=== PATIENT | female | born 2000 | race Caucasian/White ===

== ENCOUNTER 2024-04-03 13:21 | Outpatient (CLI) | payer OTHER, SELFPAY | END 2024-04-03 13:22 | disposition home or self-care (01) | PROVIDERS: PCP Nurse Practitioner; Visit Provider Nurse Practitioner | DX: M25.562 Pain in left knee (principal) | CPT/HCPCS: 73564 ==

== ENCOUNTER 2024-08-29 04:57 | Emergency (ER) | payer OTHER, SELFPAY ==
--- NOTE | ~2024-08-29 | XR_ITS ---
Clinical Indication: Chest pain PA and lateral views of the chest: Comparison: None Findings: The lungs are clear, without evidence of focal consolidation or pleural effusion. Cardiome diastinal silhouette is within normal limits. Bones and soft tissues are unremarkable. Impression: Normal chest. Reviewed, dictated and finalized at location . G ADULT LIBRARIAN Impression: Normal chest.
--- OUTSIDE RECORDS SUMMARY | 2024-08-29 05:00 | XMS_ITS | Continuity of Care Document ---
Author Organization [address] [facility] Address [address] [place] [address] Phone Care Team Providers Care Food Cashier Name Role Phone Suhail Delacruz MD Unavailable Unavailable Allergies, Adverse Reactions, Alerts Substance Reaction Status Criticality No Known allergies Procedures Procedure Date Office/outpatient visit new X-ray exam of wrist Advance Directives Directive Yes / No Effective Date File Name No Information Encounters Encounter Description Practice Location Reason(s) For Visit Diagnoses Date Provider Providers Copied on Encounter Office/outpati ent visit new [address] [facility], [id number], [place], [address], [place] tel:[phone] [facility] [address] Rt. wrist pain (chief complaint) Wrist pain Jayme Jang. [address] [facility] [address], [place], [place], [id number], [place]. tel:[phone] Referring Provider: Monica Victoria, [address] [facility] [address], [place], [address]. tel:[phone] Family History Family Member Type Diagnosis Age At Onset No Information Payers Payer name Insurance type Covered alliance party ID Iraida romerococo(s) [facility] CI [id number] Social History Type Description Quantity Date Captured Comments Alcohol Use Details Unknown Caffeine Use Details Unknown Tobacco Use Status No Information Smoking Status Never smoker Non-Smoking Tobacco Use Details : No Details Available : No Details Available Sex Female Chief Complaint And Reason For Visit From encounter dated '05/12/2012 09:00'. Rt. wrist pain (chief complaint) Reason For Referral Reason For Referral No Information History Of Present Illness Encounter Date Complaint History Of Prese nt Illness No Information Functional Status Date Functional Assessmen t No Information Instructions Date Instruction Additional Infor mation No Information Assessments Type Assessment Date No Information Patient Care Teams Name Effective Dates (start - stop) Status Members No Information
--- OUTSIDE RECORDS SUMMARY | 2024-08-29 05:00 | XMS_ITS | Continuity of Care Document ---
Author Organization [facility] Address [address] [place] [address] Care Team Providers Care Ophthalmic Tech Name Role Phone Jefferson Mccoy MD Unavailable Unavailable Allergies, Adverse Reactions, Alerts Substance Reaction Status Criticality No Known Allergies Active No Inform ation Medications Medication Instructions Dosage Effective Dates (start - stop) Status Comments amitriptyline 10 mg tablet take 1 tablet by oral route every day 10 MG - Active cyclobenzaprine ER 15 mg capsule,extended release 24 hr take 1 capsule by oral route every day as needed 15 MG - Active Procedures Procedure Date Echo Offic Cons New/estab Advanced Directives Documented 23 Ecg-routine 12 Lead; W/intrpt 3 Advance Directives Directive Yes / No Effective Date File Name No Information Encounters Encounter Description Practice Location Reason(s) For Visit Diagnoses Date Provider Providers Copied on Encounter [facility], [address] [place] [address], [address], [facility] Office [address] No Information 4 Nadine Paulino. [address] [place] [address], [address], [address], [place]. tel:[phone] [facility], [address] [place] [address], [address], [place] [facility] No Information 3 Tere Olmstead. [address] [place] [address], [place] [address], [place] [address], [place], [place], [id number], [place]. tel:[phone] Referring Provider: Jefferson Mccoy, [address] [place] [address], [place] [address], [place], [address]. tel:[phone] Offic Cons New/estab [facility], [address], [place], [address], [place] Office Cardiac Eval- Ref by Lore (chief complaint) Cardiovasc rich Review (chief complaint) Vasovagal syncope 3 Nadine Paulino. [address] [facility], [address], [place], [address], . tel:[phone] Referring Provider: Belkis Haley, [facility] [place], [address]. tel:[phone] Family History Family Member Type Diagnosis Age At Onset Problem Family History o f Coronary artery disease, premature Payers Payer name Insurance type Covered alliance party ID Iraida mares(s) [employer] CI [id number] Social History Type Description Quantity Date Captured Comments Alcohol Use Details Unknown Caffeine Use Details Unknown Tobacco Use Status No Information Smoking Status No Information Sex Female Chief Complaint And Reason For Visit No Information Reason For Referral Reason For Referral No Information History Of Present Illness Encounter Date Complaint History Of Duarte duke Illness Cardiac Eval- Ref by Lore Areli duke was sent here for evaluation of syncope. She has seen Neurology. Her symptoms usually occur when she is in the shower. She feels dizzy and somewhat lightheaded but gets tingling in her hands and then feels like she is going to pass out. She has actually lost consciousness a few times but has not hurt herself as she does help herself to the ground. She usually does not get this outside of being in the shower. Has had some dizziness in the past at work on 1 occasion but no syncope. No nausea associated. No chest pain or palpitations. Denies PND orthopnea or edema. Cardiovascular Review She has moura d no chest discomfort suggestive of ischemia. The patient denies orthopnea, PND, OBRIEN, or edema. Ms. Vila has not had palpitations, syncope or near syncope. Functional Status Date Functional Assessmen t No Information Instructions Date Instruction Additional Infor mation No Information Assessments Type Assessment Date No Information Patient Care Teams Name Effective Dates (start - stop) Status Members No Information
[2024-08-29 05:03] VITALS: BP 130/85; PULSE 107; RESP 16; TEMP 36.6; O2SAT 100
[2024-08-29 05:05] VITALS: BP 130/85; PULSE 101; RESP 20; O2SAT 100
--- NOTE | 2024-08-29 05:07 | ECG_ITS ---
Test Date: 2024-08-29 05:16:05 Measurements Intervals [place] Rate: 89 P: 47 WV: 185 QRS: 20 QRSD: 88 T: 60 QT: 345 QTc: 420 Interpretive Statements SINUS RHYTHM POSSIBLE RIGHT VENTRICULAR CONDUCTION DELAY BASELINE ARTIFACT- I, II, III, AVR, AVL, AVF, V1 BORDERLINE ECG No previous ECG available for comparison Electronically Signed On 08-29-2024 08:19:10 CHANNELING MACHINE RUNNER by Robert De Los Santos D.O.
[2024-08-29 05:15] LABS: Basophils Absolute Auto 0.1 K/mm3 (0.0-0.1); Eosinophils Absolute Auto 0.1 K/mm3 (0-0.3); Eosinophils Percent Auto 0.9 % (0-4.4); Hematocrit 39.9 % (37.0-47.0); Immature Granulocyte Absolute 0.01 K/mm3 (0.00-0.031); Immature Granulocyte Percent A 0.1 % (0-0.5); Lymphocytes Absolute Auto 3.34 K/mm3 (0.9-3.2); Mean Corpuscular HGB Conc 35.1 g/dl (32-36); Mean Corpuscular Hemoglobin 31.3 pg (26-34); Mean Corpuscular Volume 89.1 fl (80-100); Mean Platelet Volume 10.2 fl (7.4-10.4); Monocytes Absolute Auto 0.6 K/mm3 (0.1-0.6); Monocytes Percent Auto 7.1 % (2.6-8.5); Neutrophils Absolute Auto 3.7 K/mm3 (1.3-6.7); Neutrophils Percent Auto 47.9 % (45.5-73.1); Platelet Count Result 258 k/mm3 (150-375); Red Blood Count 4.48 M/mm3 (4.2-5.4); Red Cell Distribution Width 12.4 % (11.5-14.5); White Blood Count 7.8 K/mm3 (4.5-10.0)
[2024-08-29] MEDS: MAG HYDROX/AL HYDROX/SIMETH 30 ML UDC PO (05:38)
[2024-08-29 05:45] LABS: Alanine Aminotransferase 45 U/L (6-35); Albumin Level 4.3 g/dL (3.5-5.1); Alkaline Phosphatase 75 U/L (38-126); Anion Gap 14 mmol/L (4-12); Aspartate Amino Transferase 68 U/L (14-36); Bilirubin,Total 0.7 mg/dL (0.2-1.3); Blood Urea Nitrogen 11 mg/dL (7-17); Calcium 9.1 mg/dL (8.4-10.2); Carbon Dioxide 24 mmol/L (22-30); Chloride 102 mmol/L (98-107); Estimated CRCL calculation 132 ml/min; Estimated Glomerular Filt Rate > 60; Glucose 114 mg/dL (65-110); Lipase 110 U/L (23-300); Potassium 3.6 mmol/L (3.4-5.0); Sodium 140 mmol/L (137-145)
--- OUTSIDE RECORDS SUMMARY | 2024-08-29 05:48 | XMS_ITS | Continuity of Care Document ---
Author Organization [facility] Address [address] [place] [address] Care Team Providers Care Pet Care Technician Name Role Phone Jefferson Mccoy MD Unavailable [...] Providers Copied on Encounter [facility], [address] [place] [address], [address], [facility] Office [address] No Information 4 Nadine Paulino. [address] [place] [address], [address], [address], [place]. tel:[phone] [facility], [address] [place] [address], [address], [place] [facility] No Information 3 Tere Olmstead. [address] [place] [address], [place] [address], [place] [address], [place], [place], [id number], [place]. tel:[phone] Referring Provider: Jefferson Mccoy, [address] [place] [address], [place] [address], [place], [address]. tel:[phone] Offic Cons New/estab [facility], [address], [place], [address], [place] Office Cardiac Eval- Ref by Lore (chief complaint) Cardiovasc rich Review (chief complaint) Vasovagal syncope 3 Nadine Paulino. [address] [facility], [address], [place], [address], . tel:[phone] Referring Provider: Belkis Haley, [facility] [place], [address]. tel:[phone] Family History Family Member Type Diagnosis Age At Onset Problem Family History o f Coronary artery disease, premature Payers Payer name Insurance type Covered libertarian ID Iraida mares(s) [employer] CI [id number] Social History Type Description Quantity Date Captured [...]
--- OUTSIDE RECORDS SUMMARY | 2024-08-29 05:48 | XMS_ITS | Continuity of Care Document ---
Author Organization [address] [facility] Address [address] [place] [address] Phone Care Team Providers Care Fitness Studies Teacher Name Role Phone Suhail Delacruz MD Unavailable Unavailable Allergies, Adverse Reactions, Alerts Substance Reaction Status Criticality No Known allergies Procedures Procedure Date Office/outpatient visit new X-ray exam of wrist Advance Directives Directive Yes / No Effective Date File Name No Information Encounters Encounter Description Practice Location Reason(s) For Visit Diagnoses Date Provider Providers Copied on Encounter Office/outpati ent visit new [address] [facility], [address], [place], [address], [place] tel:[phone] [facility] [address] Rt. wrist pain (chief complaint) Wrist pain Jayme Jang. [address] [facility] [address], [place], [place], [id number], [place]. tel:[phone] Referring Provider: Monica Victoria, [address] [facility] [address], [place], [address]. tel:[phone] Family History Family Member Type Diagnosis Age At Onset No Information Payers Payer name Insurance type Covered green party ID Iraida romerococo(s) [facility] CI [id number] Social History Type Description Quantity Date Captured [...]
[2024-08-29 05:57] LABS: Troponin I < 0.012 ng/mL (0.000-0.034)
[2024-08-29 06:05] LABS: NT Pro B Type Natriuretic Pept < 20 pg/mL (19.9-100)
[2024-08-29 06:13] LABS: Partial Thromboplastin Time 24.5 Seconds (22.3-36.8)
--- NOTE | 2024-08-29 06:15 | ED.GENADULT ---
HPI - General Adult General Chief complaint: Chest Pain Stated complaint: chest pain, sob Time Seen by Provider: 08/29/24 05:07 History of Present Illness HPI narrative: This is a 24-year-old female with history of anxiety and GERD presenting chest pain. Chest pain woke her from sleep around 3:00 a.m.. It is a sharp pain lower chest/epigastric area. It is nonradiating. It is associated with shortness of breath when 1st occurred although she is no longer short breath. Patient says the pain is worse she lifts her breasts or hunch is over. She denies fevers chills recent URI illness, abdominal pain nausea vomiting or diarrhea. No history of DVT/PE or any risk factors. Related Data Home Medications ?Medication ?Instructions ?Recorded ?Confirmed ?Last Taken ?Type No Home Medications 08/29/24 08/29/24 Unknown History Allergies Allergy/AdvReac Type Severity Reaction Status Date / Time No Known Allergies Allergy Verified 08/29/24 05:38 Exam Narrative: APPEARANCE: No apparent distress. Head: atraumatic. EYES: EOMI, NOSE: Atraumatic NECK: Trachea midline RESPIRATORY: No increased rate of breathing CTAB CARDIOVASCULAR: RRR, no peripheral edema, reproducible chest wall pain over the sternum ABDOMINAL: Reproducible tenderness in the epigastric area, no guarding or rebound MUSCULOSKELETAl: No obvious deformities NEURO: Alert. Moving 4/4 extremities SKIN:: Warm, dry. Normal color PSYCHIATRIC: Normal affect Course Vital Signs Vital signs: Vital Signs Temperature 97.9 F 08/29/24 05:03 Pulse Rate 107 H 08/29/24 05:03 Respiratory Rate 16 08/29/24 05:03 Blood Pressure 130/85 08/29/24 05:03 Pulse Oximetry 100 08/29/24 05:03 Oxygen Delivery Room Air 08/29/24 05:03 Temperature 97.9 F 08/29/24 05:03 Pulse Rate 101 H 08/29/24 05:05 Respiratory Rate 20 08/29/24 05:05 Blood Pressure 130/85 08/29/24 05:05 Pulse Oximetry 100 08/29/24 05:05 Oxygen Delivery Room Air 08/29/24 05:34 Medical Decision Making [facility] Narrative Medical decision making narrative: -Course: 24-year-old female presenting with reproducible chest pain. Workup including chest x-ray, EKG, D-dimer, troponin, BNP, were all negative. Pain is likely chest wall pain. Patient be discharged with primary care follow-up and return precautions. -DDX includes but is not limited to: ACS, PE, chest wall pain, GERD, anxiety -Co-morbidities complicating care: Anxiety GERD Vital Signs Vital Signs: Vital Signs Temperature 97.9 F 08/29/24 05:03 Pulse Rate 107 H 08/29/24 05:03 Respiratory Rate 16 08/29/24 05:03 Blood Pressure 130/85 08/29/24 05:03 Pulse Oximetry 100 08/29/24 05:03 Oxygen Delivery Room Air 08/29/24 05:03 Temperature 97.9 F 08/29/24 05:03 Pulse Rate 101 H 08/29/24 05:05 Respiratory Rate 20 08/29/24 05:05 Blood Pressure 130/85 08/29/24 05:05 Pulse Oximetry 100 08/29/24 05:05 Oxygen Delivery Room Air 08/29/24 05:34 Lab Data 08/29/24 05:08 08/29/24 05:08 Labs: Lab Results 08/29/24 Range/Units 05:08 WBC 7.8 (4.5-10.0) K/mm3 RBC 4.48 (4.2-5.4) M/mm3 Hgb 14.0 (12.0-15.0) g/dL Hct 39.9 (37.0-47.0) % MCV 89.1 (80-100) fl MCH 31.3 (26-34) pg MCHC 35.1 (32-36) g/dl RDW 12.4 (11.5-14.5) % Plt Count 258 (150-375) k/mm3 MPV 10.2 (7.4-10.4) fl Immature Gran % (Auto) 0.1 (0-0.5) % Neut % (Auto) 47.9 (45.5-73.1) % Lymph % (Auto) 43.0 (18.3-44.2) % Gray % (Auto) 7.1 (2.6-8.5) % Eos % (Auto) 0.9 (0-4.4) % Baso % (Auto) 1.0 (0.2-1.2) % Lymph # (Auto) 3.34 H (0.9-3.2) K/mm3 Gray # (Auto) 0.6 (0.1-0.6) K/mm3 Eos # (Auto) 0.1 (0-0.3) K/mm3 Baso # (Auto) 0.1 (0.0-0.1) K/mm3 Abs Immat Gran (auto) 0.01 (0.00-0.031) K/mm3 Absolute Neuts (auto) 3.7 (1.3-6.7) K/mm3 Absolute Nucleated RBC 0.000 (0.0-0.012) K/mm3 Nucleated RBC % 0.0 (0.0-0.2) % PT 13.0 (11.1-14.7) Seconds INR 1.0 APTT 24.5 (22.3-36.8) Seconds D-Dimer 0.43 (<0.48) ug/mL Sodium 140 (137-145) mmol/L Potassium 3.6 (3.4-5.0) mmol/L Chloride 102 (98-107) mmol/L Carbon Dioxide 24 (22-30) mmol/L Anion Gap 14 H (4-12) mmol/L BUN 11 (7-17) mg/dL Creatinine 0.59 L (0.7-1.0) mg/dL Estim Creat Clear Calc 132 ml/min Estimated GFR > 60 (59 - ) Glucose 114 H (65-110) mg/dL Calcium 9.1 (8.4-10.2) mg/dL Total Bilirubin 0.7 (0.2-1.3) mg/dL AST 68 H (14-36) U/L ALT 45 H (6-35) U/L Alkaline Phosphatase 75 (38-126) U/L Troponin I < 0.012 (0.000-0.034) ng/mL NT-Pro-B Natriuret Pep < 20 (19.9-100) pg/mL Total Protein 7.0 (6.3-8.2) g/dL Albumin 4.3 (3.5-5.1) g/dL Lipase 110 (23-300) U/L Discharge Plan Discharge Clinical Impression: Chest wall pain Patient Disposition: Home, Self-Care Condition: Stable Instructions: Antibiotic Form, Chest Wall Pain (ED) Additional Instructions: Please use Motrin Tylenol for pain. Please return ED if you any new or worsening symptoms. Please follow-up with your primary care physician Patient Language: South Sudanese Prescriptions: No Action No Home Medications Follow-up/Referrals: PHYSICIAN NOT ON STAFF,NONSTAFF [Primary Care Provider] -
[2024-08-29 06:58] LABS: D Dimer 0.43 ug/mL (<0.48)
[2024-08-29] MEDS: KETOROLAC 15 MG/ML VIAL (*BKC) IV PUSH (07:36)
[2024-08-29 07:37] VITALS: BP 110/81; PULSE 87; RESP 19; O2SAT 96
[2024-08-29] MEDS: ACETAMINOPHEN 500 MG TABLET 1000 MG PO (07:37)
== END 2024-08-29 07:57 | disposition home or self-care (01) ==
PROVIDERS: Emergency Provider Emergency Medicine
DX: R07.89 Other chest pain (principal); K21.9 Gastro-esophageal reflux disease without esophagitis; R94.31 Abnormal electrocardiogram [ECG] [EKG]; R06.02 Shortness of breath
CPT/HCPCS: 36415; 71046; 80053; 83690; 83880; 84484; 85025; 85380; 85610; 85730; 93005; 96374; 99284; A9270; J1885